=== PATIENT | female | born 1970 | race Caucasian/White ===

== ENCOUNTER 2018-10-08 19:53 | Emergency (ER) | payer OTHER ==
[2018-10-08] MEDS ORDERED: Sodium Chloride 0.9% 1,000 ML IV ONE (20:07)
--- NOTE | 2018-10-08 20:07 | C.PDOC ---
History Of Present Illness Patient presents with sharp stabbing right flank pain and abdominal pain radiating to the back associated with increased frequency. Denies fever or chills. Time Seen by Provider: 10/08/18 20:06 Chief Complaint (Nursing): Abdominal Pain History Per: Patient History/Exam Limitations: no limitations Onset/Duration Of Symptoms: Hrs Current Symptoms Are (Timing): Still Present Severity: Moderate Pain Scale Rating Of: 4 Location Of Pain/Discomfort: Other (Right flank pain, right abdominal pain) Radiation Of Pain To:: Back Quality Of Discomfort: Sharp, Stabbing Associated Symptoms: denies: Fever, Chills Exacerbating Factors: None Alleviating Factors: None Recent travel outside of the [place]: No Abnormal Vaginal Bleeding: No Past Medical History Reviewed: Historical Data, Nursing Documentation, Vital Signs Vital Signs: Last Vital Signs Temp 97.9 F 10/08/18 19:56 Pulse 97 H 10/08/18 19:56 Resp 20 10/08/18 19:56 BP 158/97 H 10/08/18 19:56 Pulse Ox 100 10/08/18 19:56 - Medical History PMH: Arthritis, Asthma, Depression, HTN, Osteoporosis Family History: States: No Known Family Hx - Social History Hx Alcohol Use: No Hx Substance Use: No - Immunization History Hx Tetanus Toxoid Vaccination: No Hx Influenza Vaccination: No Hx Pneumococcal Vaccination: No Review Of Systems Constitutional: Negative for: Fever, Chills Cardiovascular: Negative for: Chest Pain, Palpitations Respiratory: Negative for: Cough, Shortness of Breath Gastrointestinal: Positive for: Abdominal Pain (Right sided). Negative for: Nausea, Vomiting Genitourinary: Positive for: Frequency Musculoskeletal: Positive for: Other (Right flank pain) Neurological: Negative for: Weakness, Numbness Physical Exam - Physical Exam Appears: Non-toxic Skin: Warm, Dry Head: Normacephalic Oral Mucosa: Moist Chest: Symmetrical, No Tenderness Cardiovascular: Rhythm Regular Respiratory: No Rales, No Rhonchi, No Wheezing Gastrointestinal/Abdominal: Soft, No Tenderness Back: CVA Tenderness (Mild right), Other (Right flank tenderness) Neurological/Psych: Oriented x3 ED Course And Treatment - Laboratory Results Result Diagrams: 10/08/18 20:48 10/08/18 20:48 ECG: Interpreted By Me, Viewed By Me ECG Rhythm: Sinus Rhythm (87), Nonspecific Changes O2 Sat by Pulse Oximetry: 100 (Room air) Pulse Ox Interpretation: Normal Progress Note: Blood work, EKG, and urinalysis ordered. IV fluids administered. Reevaluation Time: 23:59 Reassessment Condition: Improved Disposition Counseled Patient/Family Regarding: Studies Performed, Diagnosis, Need For Followup, Rx Given - Disposition Referrals: Maria Eugenia Anderson MD [Non-Staff] - Disposition: HOME/ ROUTINE Disposition Time: 20:07 Condition: FAIR Additional Instructions: Please return if symptoms recur Prescriptions: Nitrofurantoin Macrocrystals [Macrobid] 1 cap PO BID #14 cap traMADol [Ultram] 50 mg PO TID PRN #15 tab PRN Reason: Pain, Severe (8-10) Instructions: Kidney Infection (DC) Forms: [employer] (Comoran) Print Language: BULGARIAN - Clinical Impression Clinical Impression: Pyelonephritis - Scribe Statement The provider has reviewed the documentation as recorded by the Scribchavez Barrow All medical record entries made by the Scribe were at my direction and perso danyel dictated by me. I have reviewed the chart and agree that the record accurately reflects my personal performance of the history, physical exam, medical decision making, and the department course for this patient. I have also personally directed, reviewed, and agree with the discharge instructions and disposition.
[2018-10-08 21:01] LABS: BASO # 0.1 K/uL (0.0-0.2); EOS # 0.2 K/uL (0.0-0.7); EOS % 2.6 % (0.0-4.0); HEMOGLOBIN 11.6 g/dL (11.0-16.0); LYMPH # 2.6 K/uL (1.0-4.3); LYMPH % 28.4 % (20.0-40.0); MEAN CELL VOLUME 89.8 fL (81.0-99.0); MEAN CORPUSCULAR HEMOGLOBIN 30.4 pg (27.0-31.0); MEAN CORPUSCULAR HGB CONC 33.8 g/dL (33.0-37.0); MEAN PLATELET VOLUME 9.9 fL (7.2-11.7); MONO # 0.9 K/uL (0.0-0.8); MONO % 9.8 % (0.0-10.0); NEUT # 5.4 K/uL (1.8-7.0); NEUT % 58.2 % (50.0-75.0); RBC 3.82 Mil/uL (3.80-5.20); RED CELL DISTRIBUTION WIDTH 14.7 % (11.5-14.5); WHITE BLOOD COUNT 9.2 K/uL (4.8-10.8)
[2018-10-08 21:18] LABS: PROTHROMBIN TIME 11.4 SECONDS (9.7-12.2)
[2018-10-08 21:22] LABS: ALB/GLOB RATIO 1.4 (1.0-2.1); ALBUMIN 4.4 g/dL (3.5-5.0); CALCIUM 9.3 mg/dl (8.6-10.4)
[2018-10-08 21:23] LABS: URINE BILIRUBIN SMALL (NEGATIVE); URINE CLARITY SLIGHT-CLOUDY (Clear); URINE COLOR RED (YELLOW); URINE GLUCOSE (UA) NEGATIVE (Normal)
[2018-10-08 21:24] LABS: PH,URINE 6.5 (5.0-8.0); URINE BLOOD LARGE (NEGATIVE)
[2018-10-08 21:25] LABS: URINE LEUKOCYTE ESTERASE NEGATIVE Leu/uL (Negative); URINE PROTEIN >=300 mg/dL (NEGATIVE)
[2018-10-08 21:26] LABS: HCG,QUALITATIVE URINE NEGATIVE (NEGATIVE)
[2018-10-08 21:42] VITALS: RESP 20
[2018-10-08] MEDS ORDERED: cefTRIAXone IV 1 gm in Dextros 50 ML IVPB ONE (23:55)
[2018-10-09 00:19] VITALS: BP 110/62; PULSE 75; TEMP 98.5; O2SAT 98
--- NOTE | 2018-10-09 09:29 | CT ---
CT abdomen and pelvis HISTORY: Right flank pain. COMPARISON: None available. Technique: Multiple contiguous axial images were performed through the abdomen and pelvis without the use of intravenous contrast. Subsequently, sagittal and coronal reformatted images were obtained. This CT exam was performed using one or more of the following dose reduction techniques: Automated exposure control, adjustment of the mA and/or kV according to patient size, and/or use of iterative reconstruction technique. Findings: Mild nodularity in the anterior aspect of the right middle lobe on series 3, image 15. No pleural or pericardial effusion. Prominent liver. Gallbladder preserved. Spleen is preserved. Splenule. Adrenal glands are preserved. Pancreas is preserved. Upper abdominal bowel is preserved. Right kidney: Prominence of the right kidney with associated mild right hydroureteronephrosis. Mild perinephric fat stranding. In addition, there is moderate proximal periureteral fat stranding. No gross calculus is noted. These findings may be related to a recently passed calculus; however, sequelae of acute infectious and or inflammatory changes such as a right-sided pyelonephritis cannot be excluded. Clinical correlation. Correlation with contrast-enhanced CT scan may be helpful if clinically indicated. Left Kidney: No calculi or hydronephrosis. Urinary bladder is preserved. Uterus is preserved. Fecal retention in the colon. Few scattered diverticuli. Appendix is visualized and is within normal limits. Few shotty para-aortic and inguinal lymph nodes. Mild atherosclerotic calcification plaque in the aorta. Few shotty mesenteric lymph nodes. Reticulation and edema seen within the posterior right subcutaneous soft tissues at the gluteal region. Degenerative changes in the spine. Impression: Prominence of the right kidney with associated mild right hydroureteronephrosis. Mild perinephric fat stranding. In addition, there is moderate proximal periureteral fat stranding. No gross calculus is noted. These findings may be related to a recently passed calculus; however, sequelae of acute infectious and or inflammatory changes such as a right-sided pyelonephritis cannot be excluded. Clinical correlation. Correlation with contrast-enhanced CT scan may be helpful if clinically indicated. Additional findings as above. A preliminary report was generated at 11:54 p.m. on 10/08/[address] Rashawn Mendez from [employer].
--- NOTE | 2018-10-09 20:31 | CARD ---
APPROVED REPORT Date of service: 10/08/2018 EKG Measurement Heart [id number] FL [id number] [id number] <Conclusion> Normal sinus rhythm Normal ECG
== END 2018-10-09 00:29 | disposition home or self-care (01) ==
LOC: C.ER 19:53
DX: N12 Tubulo-interstitial nephritis, not specified as acute or chronic (principal); I10 Essential (primary) hypertension; M81.0 Age-related osteoporosis without current pathological fracture
CPT/HCPCS: 74176; 80053; 81001; 83690; 84703; 85025; 85610; 85730; 93005; 96361; 96374; 96375; 99285; J0696; J1885; J2270; J2405; J7030